=== PATIENT | female | born 1990 | race Caucasian/White ===

== ENCOUNTER 2022-07-27 13:34 | Outpatient (CLI) | payer OTHER, SELFPAY ==
[2022-07-27] VITALS (11 sets, daily range): BP systolic 115–128; BP diastolic 69–78; PULSE 74–88
--- NOTE | 2022-07-27 13:34 | OBADM ---
This patient, Mame Moulton, admitted to the OB room OB Post 117 for observation. Patient/family oriented to hospital policies and general routines including ID bracelet, bed and alarms, visiting hours, pain management, procedures, bathroom and other care routines, personal items, smoking policy, room service/diet, and visiting hours. Patient/Family are encouraged to report perceived risks to care and to ask questions if they do not understand what they are told or what they should do.
[2022-07-27 14:14] LABS: Basophils Percent Auto 0.3 % (0.2-1.2); Eosinophils Percent Auto 0.3 % (0-4.4); Hematocrit 32.6 % (37.0-47.0); Hemoglobin 10.3 g/dL (12.0-15.0); Immature Granulocyte Absolute 0.04 K/mm3 (0.00-0.031); Immature Granulocyte Percent A 0.5 % (0-0.5); Lymphocytes Absolute Auto 1.69 K/mm3 (0.9-3.2); Lymphocytes Percent Auto 21.4 % (18.3-44.2); Mean Corpuscular HGB Conc 31.6 g/dl (32-36); Mean Corpuscular Hemoglobin 27.3 pg (26-34); Mean Corpuscular Volume 86.5 fl (80-100); Mean Platelet Volume 10.4 fl (7.4-10.4); Monocytes Absolute Auto 0.3 K/mm3 (0.1-0.6); Monocytes Percent Auto 4.3 % (2.6-8.5); Neutrophils Absolute Auto 5.8 K/mm3 (1.3-6.7); Neutrophils Percent Auto 73.2 % (45.5-73.1); Platelet Count Result 224 k/mm3 (150-375); Red Blood Count 3.77 M/mm3 (4.2-5.4); Red Cell Distribution Width 14.7 % (11.5-14.5); White Blood Count 7.9 K/mm3 (4.5-10.0)
[2022-07-27 14:19] LABS: Alanine Aminotransferase 19 U/L (6-35); Alkaline Phosphatase 82 U/L (38-126); Anion Gap 8 mmol/L (8-16); Aspartate Amino Transferase 21 U/L (14-36); Bilirubin,Total 0.3 mg/dL (0.2-1.3); Blood Urea Nitrogen 7 mg/dL (7-17); Calcium 9.2 mg/dL (8.4-10.2); Carbon Dioxide 22 mmol/L (22-30); Chloride 103 mmol/L (98-107); Estimated Glomerular Filt Rate > 60; Glucose 110 mg/dL (65-110); Potassium 3.4 mmol/L (3.4-5.0); Sodium 133 mmol/L (137-145); Uric Acid 4.3 mg/dL (2.5-7.5)
[2022-07-27 15:05] LABS: Creatinine Urine 51.3 mg/dL
[2022-07-27 15:06] LABS: Total Protein Urine Random < 5 mg/dL; Ur Ttl Prot Creatinine Ratio < 0.10 mg/mg (0-0.20)
[2022-07-27 15:11] LABS: Appearance Urine Clear (Clear); Bilirubin Urine Negative (Negative); Blood Urine Negative (Negative); Color Urine Yellow (Yellow); Glucose Urine UA Negative (Negative); Ketones Urine Negative (Negative); Leukocyte Esterase Ur Trace LEU/UL (NEGATIVE); Nitrate Urine Negative (Negative); Protein Urine Negative (Negative); Urobilinogen Urine 0.2 mg/dL (<2.0)
[2022-07-27 15:16] LABS: Bacteria Urine Trace /hpf; Mucus Urine Rare /lpf; RBC Urine 0-2 /hpf (0-2); Squamous Epithelial Cell Urine Many /hpf (Few); WBC Urine 0-3 /hpf (0-3)
[2022-07-27 15:17] LABS: Add Urine Microscopic? YES
--- NOTE | 2022-07-27 16:18 | PC.NURSE ---
Lesley updated on the pt vital signs and lab work. Order received to discharge the pt.
== END 2022-07-27 16:22 | disposition home or self-care (01) ==
LOC: ANHOBOP 13:43 → ANHOBPP 13:45
PROVIDERS: Visit Provider Obstetrics & Gynecology
DX: O13.9 Gestational [pregnancy-induced] hypertension without significant proteinuria, unspecified trimester (principal); Z3A.00 Weeks of gestation of pregnancy not specified
CPT/HCPCS: 36415; 59025; 80053; 81001; 82570; 84156; 84550; 85025; 87086; 87088; 99199

== ENCOUNTER 2022-08-26 15:39 | Outpatient (RCR) | payer OTHER, SELFPAY ==
[2022-08-26 16:36] LABS: Basophils Percent Auto 0.2 % (0.2-1.2); Eosinophils Percent Auto 0.2 % (0-4.4); Hematocrit 33.7 % (37.0-47.0); Hemoglobin 10.8 g/dL (12.0-15.0); Immature Granulocyte Absolute 0.03 K/mm3 (0.00-0.031); Immature Granulocyte Percent A 0.5 % (0-0.5); Lymphocytes Absolute Auto 1.16 K/mm3 (0.9-3.2); Lymphocytes Percent Auto 17.9 % (18.3-44.2); Mean Corpuscular Volume 87.3 fl (80-100); Mean Platelet Volume 11.1 fl (7.4-10.4); Monocytes Absolute Auto 0.4 K/mm3 (0.1-0.6); Monocytes Percent Auto 5.7 % (2.6-8.5); Neutrophils Absolute Auto 4.9 K/mm3 (1.3-6.7); Neutrophils Percent Auto 75.5 % (45.5-73.1); Platelet Count Result 211 k/mm3 (150-375); Red Blood Count 3.86 M/mm3 (4.2-5.4); Red Cell Distribution Width 15.9 % (11.5-14.5); White Blood Count 6.5 K/mm3 (4.5-10.0)
[2022-08-26 16:44] LABS: Appearance Urine Cloudy (Clear); Bacteria Urine None Seen /hpf; Bilirubin Urine Negative (Negative); Blood Urine Negative (Negative); Color Urine Yellow (Yellow); Glucose Urine UA Negative (Negative); Ketones Urine Negative (Negative); Leukocyte Esterase Ur Negative LEU/UL (NEGATIVE); Nitrate Urine Negative (Negative); Non Pathogenic Casts 0-2; Protein Urine Negative (Negative); RBC Urine 0-2 /hpf (0-2); Specific Grav Ur 1.015 (1.001-1.035); Squamous Epithelial Cell Urine Many /hpf (Few); Urobilinogen Urine 0.2 mg/dL (<2.0); WBC Urine 0-5 /hpf (0-3)
[2022-08-26 16:49] LABS: Add Urine Microscopic? YES
[2022-08-26 16:55] LABS: Alanine Aminotransferase 19 U/L (6-35); Albumin Level 3.8 g/dL (3.5-5.1); Alkaline Phosphatase 89 U/L (38-126); Anion Gap 7 mmol/L (8-16); Aspartate Amino Transferase 21 U/L (14-36); Bilirubin,Total 0.3 mg/dL (0.2-1.3); Blood Urea Nitrogen 10 mg/dL (7-17); Calcium 8.9 mg/dL (8.4-10.2); Carbon Dioxide 23 mmol/L (22-30); Chloride 104 mmol/L (98-107); Estimated Glomerular Filt Rate > 60; Glucose 90 mg/dL (65-110); Potassium 3.9 mmol/L (3.4-5.0); Sodium 134 mmol/L (137-145); Uric Acid 4.7 mg/dL (2.5-7.5)
[2022-08-26 17:03] LABS: Creatinine Urine 53.5 mg/dL; Total Protein Urine Random 8 mg/dL; Ur Ttl Prot Creatinine Ratio 0.15 mg/mg (0-0.20)
[2022-08-26 17:28] VITALS: BP 143/80; PULSE 77
== END 2022-09-18 15:14 | disposition home or self-care (01) ==
LOC: ANHOBOP 15:39
PROVIDERS: Visit Provider Obstetrics & Gynecology
DX: O26.899 Other specified pregnancy related conditions, unspecified trimester (principal); R03.0 Elevated blood-pressure reading, without diagnosis of hypertension; Z3A.00 Weeks of gestation of pregnancy not specified
CPT/HCPCS: 36415; 59025; 80053; 81001; 82570; 84156; 84550; 85025; 87086

== ENCOUNTER 2022-08-28 12:36 | Observation (INO) | payer OTHER, SELFPAY ==
--- NOTE | 2022-09-07 06:55 | PM.OBTRLD ---
OB - Triage/Final Diagnosis Visit Information Reason for evaluation: threatened labor Comments/Additional reasons for admission: I have assessed the risk for this patient, Mame Moulton, and determined that she would benefit from observation care.
== END 2022-08-28 15:07 | disposition home or self-care (01) ==
PROVIDERS: Admitting Provider Obstetrics & Gynecology; Visit Provider Obstetrics & Gynecology
DX: O47.1 False labor at or after 37 completed weeks of gestation (principal); Z3A.37 37 weeks gestation of pregnancy
CPT/HCPCS: G0378; G0379

== ENCOUNTER 2022-09-01 20:30 | Inpatient (IN) | payer OTHER, SELFPAY ==
[2022-09-01] VITALS (28 sets, daily range): BP systolic 125–207; BP diastolic 81–105; PULSE 59–80; RESP 16; TEMP 36.4; BMI 38.6
--- NOTE | 2022-09-01 19:00 | OBADM ---
This patient, Mame Moulton, admitted to the OB room OB Post 112 for observation. Patient states she has been taking BP at home and they have been elevated. Also states she has had a headache most of the day along with visual disturbances she describes as sparkles . Patient states she had a history of Pre-E with 1st and was delivered early at 37 weeks. Patient/family oriented to hospital policies and general routines including ID bracelet, bed and alarms, visiting hours, pain management, procedures, bathroom and other care routines, personal items, smoking policy, room service/diet, and visiting hours. Patient/Family are encouraged to report perceived risks to care and to ask questions if they do not understand what they are told or what they should do.
[2022-09-01 19:06] LABS: Basophils Percent Auto 0.2 % (0.2-1.2); Eosinophils Percent Auto 0.1 % (0-4.4); Hematocrit 33.5 % (37.0-47.0); Hemoglobin 10.6 g/dL (12.0-15.0); Immature Granulocyte Absolute 0.07 K/mm3 (0.00-0.031); Immature Granulocyte Percent A 0.8 % (0-0.5); Lymphocytes Absolute Auto 2.27 K/mm3 (0.9-3.2); Lymphocytes Percent Auto 26.1 % (18.3-44.2); Mean Corpuscular HGB Conc 31.6 g/dl (32-36); Mean Corpuscular Volume 85.5 fl (80-100); Mean Platelet Volume 11.6 fl (7.4-10.4); Monocytes Absolute Auto 0.4 K/mm3 (0.1-0.6); Monocytes Percent Auto 4.8 % (2.6-8.5); Neutrophils Absolute Auto 5.9 K/mm3 (1.3-6.7); Platelet Count Result 219 k/mm3 (150-375); Red Blood Count 3.92 M/mm3 (4.2-5.4); Red Cell Distribution Width 15.3 % (11.5-14.5); White Blood Count 8.7 K/mm3 (4.5-10.0)
[2022-09-01 19:15] LABS: Alanine Aminotransferase 25 U/L (6-35); Albumin Level 3.9 g/dL (3.5-5.1); Alkaline Phosphatase 113 U/L (38-126); Anion Gap 9 mmol/L (8-16); Aspartate Amino Transferase 31 U/L (14-36); Bilirubin,Total 0.3 mg/dL (0.2-1.3); Blood Urea Nitrogen 14 mg/dL (7-17); Calcium 8.7 mg/dL (8.4-10.2); Carbon Dioxide 20 mmol/L (22-30); Chloride 106 mmol/L (98-107); Estimated Glomerular Filt Rate > 60; Glucose 73 mg/dL (65-110); Potassium 3.2 mmol/L (3.4-5.0); Sodium 135 mmol/L (137-145); Uric Acid 5.7 mg/dL (2.5-7.5)
[2022-09-01 19:25] LABS: Creatinine Urine 34.8 mg/dL; Total Protein Urine Random 76 mg/dL; Ur Ttl Prot Creatinine Ratio 2.18 mg/mg (0-0.20)
[2022-09-01 19:26] LABS: Appearance Urine Clear (Clear); Bacteria Urine None Seen /hpf; Bilirubin Urine Negative (Negative); Blood Urine Negative (Negative); Color Urine Yellow (Yellow); Glucose Urine UA Negative (Negative); Ketones Urine Negative (Negative); Leukocyte Esterase Ur Negative LEU/UL (NEGATIVE); Nitrate Urine Negative (Negative); Non Pathogenic Casts 0-2; Protein Urine 2+ mg/dL (Negative); RBC Urine 0-2 /hpf (0-2); Squamous Epithelial Cell Urine Few /hpf (Few); Urobilinogen Urine 0.2 mg/dL (<2.0); WBC Urine 0-5 /hpf (0-3)
[2022-09-01] MEDS: LABETALOL HCL INJ 100 MG/20 ML VIAL 20 MG IV PUSH (19:30)
[2022-09-01 19:36] LABS: Add Urine Microscopic? YES
[2022-09-01] MEDS: LABETALOL HCL INJ 100 MG/20 ML VIAL 40 MG IV PUSH (19:45)
[2022-09-01] MEDS: LABETALOL HCL INJ 100 MG/20 ML VIAL 80 MG IV PUSH ×2 (20:00→20:22)
[2022-09-01] MEDS: ACETAMINOPHEN 500 MG TABLET 1000 MG PO (20:05)
[2022-09-01] MEDS: LACTATED RINGERS 1,000 ML 75 ML IV CONT (20:50)
[2022-09-01] MEDS: MAGNESIUM SULF 4 GM/WATER100ML 4 GM/100 ML BAG IVPB (20:53)
[2022-09-01] MEDS: ONDANSETRON INJ 4 MG/2 ML VIAL IV PUSH (21:00)
--- NOTE | 2022-09-01 21:02 | WPDANESEPPF ---
Anes - Initial Pre Proc Eval Procedure: Date/Time: 09/01/22 21:02 Surgeon: Karan Sutton MD Pre Op Diagnosis: Pre-Eclampsia Pre Op Diagnosis: PIH Evaluation Patient Data Age: 32 Gender: F Height: Weight: Last Vital Signs Pulse 74 09/01/22 21:00 BP 166/90 H 09/01/22 21:00 Allergies Allergy/AdvReac Type Severity Reaction Status Date / Time azithromycin Allergy Hives Verified 07/27/22 14:09 Home Medications Medication Instructions Recorded Confirmed Type docosahexaenoic acid 200 mg capsule 480 mg PO 08/21/22 History Laboratory Tests 09/01/22 09/01/22 09/01/22 18:54 18:54 18:54 WBC 8.7 K/mm3 K/mm3 (4.5-10.0) RBC 3.92 M/mm3 L M/mm3 (4.2-5.4) Hgb 10.6 g/dL L g/dL (12.0-15.0) Hct 33.5 % L % (37.0-47.0) MCV 85.5 fl fl (80-100) MCH 27.0 pg pg (26-34) MCHC 31.6 g/dl L g/dl (32-36) RDW 15.3 % H % (11.5-14.5) Plt Count 219 k/mm3 k/mm3 (150-375) MPV 11.6 fl H fl (7.4-10.4) Immature Gran % (Auto) 0.8 % H % (0-0.5) Neut % (Auto) 68.0 % % (45.5-73.1) Lymph % (Auto) 26.1 % % (18.3-44.2) [place] % (Auto) 4.8 % % (2.6-8.5) Eos % (Auto) 0.1 % % (0-4.4) Baso % (Auto) 0.2 % % (0.2-1.2) Lymph # (Auto) 2.27 K/mm3 K/mm3 (0.9-3.2) [place] # (Auto) 0.4 K/mm3 K/mm3 (0.1-0.6) Eos # (Auto) 0.0 K/mm3 K/mm3 (0-0.3) Baso # (Auto) 0.0 K/mm3 K/mm3 (0.0-0.1) Abs Immat Gran (auto) 0.07 K/mm3 H K/mm3 (0.00-0.031) Absolute Neuts (auto) 5.9 K/mm3 K/mm3 (1.3-6.7) Absolute Nucleated RBC 0.0 K/mm3 K/mm3 (0.0-0.012) Nucleated RBC % 0.0 % % (0.0-0.2) Sodium Potassium Chloride Carbon Dioxide Anion Gap BUN Creatinine Estim Creat Clear Calc Estimated GFR Glucose Uric Acid Calcium Total Bilirubin AST ALT Alkaline Phosphatase Total Protein Albumin Urine Color Yellow (Yellow) Urine Appearance Clear (Clear) Urine pH 6.0 (5.0-9.0) Ur Specific [place] 1.010 (1.001-1.035) Urine Protein 2+ mg/dL H mg/dL (Negative) Urine Glucose (UA) Negative mg/dL mg/dL (Negative) Urine Ketones Negative mg/dL mg/dL (Negative) Ur Blood (Man) Negative (Negative) Urine Nitrate Negative (Negative) Urine Bilirubin Negative (Negative) Urine Urobilinogen 0.2 mg/dL mg/dL (<2.0) Ur Leukocyte Esterase Negative KAT/UL KAT/UL (NEGATIVE) Urine RBC 0-2 /hpf /hpf (0-2) Urine WBC 0-5 /hpf /hpf (0-3) Ur Squamous Epith Cells Few /hpf /hpf (Few) Urine Bacteria None seen /hpf /hpf Urine Casts 0-2 U Random Total Protein 76 mg/dL mg/dL Urine Creatinine 34.8 mg/dL mg/dL Protein/Creat Ratio 2 2.18 mg/mg H mg/mg (0-0.20) 09/01/22 18:54 WBC RBC Hgb Hct MCV MCH MCHC RDW Plt Count MPV Immature Gran % (Auto) Neut % (Auto) Lymph % (Auto) [place] % (Auto) Eos % (Auto) Baso % (Auto) Lymph # (Auto) [place] # (Auto) Eos # (Auto) Baso # (Auto) Abs Immat Gran (auto) Absolute Neuts (auto) Absolute Nucleated RBC Nucleated RBC % Sodium 135 mmol/L L mmol/L (137-145) Potassium 3.2 mmol/L L mmol/L (3.4-5.0) Chloride 106 mmol/L mmol/L (98-107) Carbon Dioxide 20 mmol/L L mmol/L (22-30) Anion Gap 9 mmol/L mmol/L (8-16) BUN 14 mg/dL mg/dL (7-17) Creatinine
[2022-09-01 21:33] LABS: Basophils Percent Auto 0.2 % (0.2-1.2); Eosinophils Percent Auto 0.1 % (0-4.4); Hematocrit 34.4 % (37.0-47.0); Hemoglobin 11.2 g/dL (12.0-15.0); Immature Granulocyte Absolute 0.04 K/mm3 (0.00-0.031); Immature Granulocyte Percent A 0.5 % (0-0.5); Lymphocytes Percent Auto 24.4 % (18.3-44.2); Mean Corpuscular HGB Conc 32.6 g/dl (32-36); Mean Platelet Volume 12.1 fl (7.4-10.4); Monocytes Absolute Auto 0.4 K/mm3 (0.1-0.6); Monocytes Percent Auto 4.7 % (2.6-8.5); Neutrophils Percent Auto 70.1 % (45.5-73.1); Platelet Count Result 214 k/mm3 (150-375); Red Cell Distribution Width 15.7 % (11.5-14.5); White Blood Count 8.6 K/mm3 (4.5-10.0)
[2022-09-01] MEDS: MAGNESIUM SULF 20GM/WATER500ML 500 ML 50 MG IV CONT (21:35)
--- NOTE | 2022-09-01 22:20 | PM.IMHP ---
H&P: HPI History of Present Illness Date/Time: 09/01/22 22:20 Chief Complaint: High blood pressure Narrative: 32 y/o at 38 1/7 weeks with a history of preeclampsia in her first . She has been on aspirin 81 mg until 34 weeks. She checked her bp at home and found it to be elevated. No headache, no abdominal pain, no visual field changes. Good movement. She has had some contractions. BP here 207/105, has responded to treatment. Prior x 2, desires repeat. I have offered her repeat this evening. 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 Surgical History Surgical History (Updated 09/01/22 @ 22:30 by Karan Sutton MD) History of delivery Family History Family History Father Hypertension Mother Hypertension Social History Social History Substance use: never Spiritual care concerns: No Comments SAB x 4 x 2 Meds Home Medications and Allergies Home Medications Medication Instructions Recorded Confirmed Type docosahexaenoic acid 200 mg capsule 480 mg PO 08/21/22 History Allergies Allergy/AdvReac Type Severity Reaction Status Date / Time azithromycin Allergy Hives Verified 07/27/22 14:09 Vital Signs Vital Signs - 24 hr 09/01/22 18:40 09/01/22 18:46 09/01/22 19:00 Pulse Rate 73 67 71 Blood Pressure 207/105 H 198/98 H 193/104 H 09/01/22 19:15 09/01/22 19:31 09/01/22 19:41 Pulse Rate 70 64 67 Blood Pressure 195/99 H 195/96 H 196/97 H 09/01/22 19:51 09/01/22 19:59 09/01/22 20:00 Pulse Rate 75 66 66 Blood Pressure 192/96 H 181/98 H 189/99 H 09/01/22 20:10 09/01/22 20:20 04/04/23 20:30 Pulse Rate 78 70 72 Blood Pressure 187/96 H 187/92 H 183/99 H 09/01/22 20:46 09/01/22 20:50 09/01/22 21:00 Pulse Rate 72 69 74 Blood Pressure 162/87 H 172/92 H 166/90 H 09/01/22 21:10 09/01/22 21:20 09/01/22 21:30 Pulse Rate 75 79 80 Blood Pressure 167/87 H 161/89 H 155/84 H 09/01/22 21:40 09/01/22 21:50 09/01/22 19:30 Pulse Rate 75 79 62 Blood Pressure 149/85 H 157/89 H 09/01/22 19:45 09/01/22 20:00 09/01/22 20:22 Pulse Rate 67 65 74 Blood Pressure Exam Const: Orientation/consciousness: patient oriented x3 Other: Well-developed, well-nourished female in no acute distress. Neck: Thyroid: thyroid normal Lymphatic: no lymphadenopathy noted (in neck, axilla or inguinal nodes) Resp: Effort & Inspection: normal respiratory effort Auscultation: clear to auscultation bilaterally Cardio: Rate: regular rate Rhythm: regular rhythm Heart sounds: S1 normal heart sound present and S2 normal heart sound present GI: Other: ABD: Soft, nontender, nondistended, gravid. No guarding or rebound tenderness. No hepatosplenomegaly. NST reactive. TOCO: irregular contractions. : General: Yes no CVA tenderness Other: RomPlus negative. Back/Spine/Pelvis: Back: no CVA tenderness Skin: General skin exam: normal color and no rashes or lesions noted Neuro: General: patient oriented x3 Extrem: Other: Extremities: nontender with no edema Psych: Mental Status: mental status grossly normal Affect: normal affect H&P: Results Labs Labs: Short CBC 09/01/22 09/01/22 Range/Units 18:54 21:27 WBC 8.7 8.6 (4.5-10.0) K/mm3 Hgb 10.6 L 11.2 L (12.0-15.0) g/dL Hct 33.5 L 34.4 L (37.0-47.0) % Plt Count 219 214 (150-375) k/mm3 BMP 09/01/22 18:54 Sodium 135 L Potassium 3.2 L Chloride 106 Carbon Dioxide 20 L BUN 14 Creatinine 0.60 L Glucose 73 Calcium 8.7 Liver Function 09/01/22 Range/Units 18:54 Total Bilirubin 0.3 (0.2-1
[2022-09-01] MEDS: ceFAZolin 2 GM/D5W 50 ML 2 GM/50 ML BAG IVPB (22:26)
--- NOTE | 2022-09-01 22:30 | WPDHPUPDATE1 ---
History and Physical Update Update Date/Time: 09/01/22 22:30 History and Physical has been reviewed, including an updated exam of the patient. There are NO changes in the patient's condition. Risks, benefits, and alternatives have been discussed and questions answered. Patient agrees to proceed with procedure.
[2022-09-01] MEDS: OXYTOCIN 30 UNITS/NS 500 ML 30 UNITS/500 ML BAG 125 UNITS IV CONT (23:30)
[2022-09-01] MEDS: KETOROLAC 30 MG/ML VIAL (*BKC) IV PUSH (23:48)
--- NOTE | 2022-09-01 23:51 | P.PCNOB_ITS ---
OB - Delivery Note Procedure Delivery date: 09/01/22 Procedure: Procedures Operation Date: 09/01/22 22:00 <No data on this case meets the specified criteria> Repeat low transverse delivery Events: Preeclampsia w/o severe features and Previous Delivery Delivery monitor: External FHT and External Uterine Route of delivery: Specimen: Yes (cord blood, placenta) Quantitative Blood Loss (ml): 880 Anesthesia type: Spinal Disposition: PACU Complications: None Narrative: Findings: Two vessel umbilical cord noted. Dense adhesions between the anterior uterus and the abdominal wall. Otherwise, unremarkable uterus, tubes and ovaries. The patient was taken to the operating room where she was prepared and draped in the usual sterile fashion in dorsal supine position with a leftward tilt. She received cefazolin preoperatively. Spinal anesthesia was found to be adequate. A Pfannenstiel skin incision was made along the previous scar line and was carried through to the underlying layer of the fascia. The fascia was incised in the midline and the incision was extended laterally. The fascia was dissected free of the underlying rectus muscles. The rectus muscles were in the midline. The peritoneum was identified, tented up and entered sharply. The peritoneal incision was extended superiorly and inferiorly with good visualization of the bladder. The bladder blade was placed. Dense adhesions were carefully dissected. The vesicouterine peritoneum was identified, tented up and entered sharply. The incision was extended laterally and the bladder flap was developed. The bladder blade was replaced. The uterus was then incised sharply in a transverse fashion along the lower uterine segment. The incision was extended laterally. The 's head was delivered atraumatically to the sterile field, followed by the body. The nose and mouth were bulb suctioned. After a delay, the cord was clamped and cut. The infant was handed off the field. Cord blood was collected. The placenta was removed manually and was passed off the field. The uterus was exteriorized and cleared of all clots and debris. The uterine incision was reapproximated using 0 Monocryl in a running, locked fashion. A second, imbricating layer of the same suture was run. Excellent hemostasis resulted as did excellent reapproximation of the normal anatomy. The uterus was returned the abdomen. The pelvis was irrigated copiously with warmed normal saline. The bladder flap was treated with Hemaderm. Rigorous hemostasis was assured. The fascial layer was reapproximated using 0 Vicryl in a running fashion. The skin was closed with a running, subcuticular stitch of 4 0 Vicryl. Dermaflex was applied externally. Sponge, lap, needle and instrument counts were correct. The patient was taken to the recovery room in stable condition. The went to the nursery in stable condition. I was present and scrubbed the entire procedure. [place] Baby Date of : 09/01/22 Time of : 22:55 Weeks of gestation at delivery: 38 gender: Female Weight (pounds): 6 Weight (ounces): 3 presentation: vertex Placenta delivery description: Manual Removal and Normal Configuration Cord Vessel Description: 3 Vessels and Delayed Cord Clamping score one minute: 8 score five minutes: 8
--- NOTE | 2022-09-01 23:58 | PM.OBDSVD ---
DS: Admitting Diagnosis Discharge Date 09/04/22 Admitting Diagnosis IUP at 38 1/7 weeks Severe preeclampsia Prior DS: Discharge Diagnosis Discharge Diagnosis (1) delivery delivered: Code(s): O82 - Encounter for delivery without indication Status: Acute (2) Preeclampsia: Code(s): O14.90 - Unspecified pre-eclampsia, unspecified trimester Status: Acute OB - DS: Summary OB Procedures : NST and PIH Mgmt OB Procedures Intrapartum: OB Procedures: : None Peripartum Data Procedures: Procedures Operation Date: 09/01/22 22:00 <No data on this case meets the specified criteria> Time Spent with Patient Time attestation: Total time spent providing and/or coordinating discharge services: DS: Data Data Completed and Pending Labs on day of discharge: Labs from last 24 hours 09/01/22 09/01/22 09/01/22 21:27 21:27 21:27 WBC 8.6 RBC 4.00 L Hgb 11.2 L Hct 34.4 L MCV 86.0 MCH 28.0 MCHC 32.6 RDW 15.7 H Plt Count 214 MPV 12.1 H Immature Gran % (Auto) 0.5 Neut % (Auto) 70.1 Lymph % (Auto) 24.4 [place] % (Auto) 4.7 Eos % (Auto) 0.1 Baso % (Auto) 0.2 Lymph # (Auto) 2.10 [place] # (Auto) 0.4 Eos # (Auto) 0.0 Baso # (Auto) 0.0 Abs Immat Gran (auto) 0.04 H Absolute Neuts (auto) 6.0 Absolute Nucleated RBC 0.0 Nucleated RBC % 0.0 Sodium Potassium Chloride Carbon Dioxide Anion Gap BUN Creatinine Estim Creat Clear Calc Estimated GFR Glucose Uric Acid Calcium Total Bilirubin AST ALT Alkaline Phosphatase Total Protein Albumin Urine Color Urine Appearance Urine pH Ur Specific [place] Urine Protein Urine Glucose (UA) Urine Ketones Ur Blood (Man) Urine Nitrate Urine Bilirubin Urine Urobilinogen Ur Leukocyte Esterase Urine RBC Urine WBC Ur Squamous Epith Cells Urine Bacteria Urine Casts U Random Total Protein Urine Creatinine Protein/Creat Ratio 2 RPR Pending Blood Type A Positive Antibody Screen Negative 09/01/22 09/01/22 09/01/22 18:54 18:54 18:54 WBC 8.7 RBC 3.92 L Hgb 10.6 L Hct 33.5 L MCV 85.5 MCH 27.0 MCHC 31.6 L RDW 15.3 H Plt Count 219 MPV 11.6 H Immature Gran % (Auto) 0.8 H Neut % (Auto) 68.0 Lymph % (Auto) 26.1 [place] % (Auto) 4.8 Eos % (Auto) 0.1 Baso % (Auto) 0.2 Lymph # (Auto) 2.27 [place] # (Auto) 0.4 Eos # (Auto) 0.0 Baso # (Auto) 0.0 Abs Immat Gran (auto) 0.07 H Absolute Neuts (auto) 5.9 Absolute Nucleated RBC 0.0 Nucleated RBC % 0.0 Sodium 135 L Potassium 3.2 L Chloride 106 Carbon Dioxide 20 L Anion Gap 9 BUN 14 Creatinine 0.60 L Estim Creat Clear Calc Not Reportable Estimated GFR > 60 Glucose 73 Uric Acid 5.7 Calcium 8.7 Total Bilirubin 0.3 AST 31 ALT 25 Alkaline Phosphatase 113 Total Protein 7.0 Albumin 3.9 Urine Color Urine Appearance Urine pH Ur Specific [place] Urine Protein Urine Glucose (UA) Urine Ketones Ur Blood (Man) Urine Nitrate Urine Bilirubin Urine Urobilinogen Ur Leukocyte Esterase Urine RBC Urine WBC Ur Squamous Epith Cells Urine Bacteria Urine Casts U Random Total Protein 76 Urine Creatinine 34.8 Protein/Creat Ratio 2 2.18 H RPR Blood Type Antibody Screen 09/01/22 18:54 WBC RBC Hgb Hct MCV MCH MCHC RDW Plt Count MPV Immature Gran % (Auto) Neut % (Auto) Lymph % (Auto) [place] % (Auto) Eos % (Auto) Baso % (Auto) Lymph # (Auto) [place] # (Auto) Eos # (Auto) Baso # (Auto) Abs Immat Gran (auto) Absolute Neuts (auto) Absolute Nucleated RBC Nucleated RBC % Sodium Potassium Chloride Carbon Dioxide Anion Gap BUN Creatinine Estim Creat Cl
[2022-09-02] VITALS (22 sets, daily range): BP systolic 123–157; BP diastolic 47–88; PULSE 58–90; RESP 16–18; TEMP 36.1–37.2; O2SAT 95–100
[2022-09-02] MEDS: MORPHINE SULFATE INJ (*CRX) 10 MG/ML AMP IV PUSH ×3 (00:02→01:00)
--- NOTE | 2022-09-02 02:07 | OBPPTRN ---
Patient transferred to post room #287 via stretcher. Support person present. Oriented to unit, room, information board, rooming in, admission packet and security measures. Patient verbalizes understanding.
[2022-09-02] MEDS: ONDANSETRON INJ 4 MG/2 ML VIAL IV PUSH ×2 (02:58→12:37)
[2022-09-02 05:05] LABS: Basophils Percent Auto 0.2 % (0.2-1.2); Hematocrit 28.7 % (37.0-47.0); Hemoglobin 9.3 g/dL (12.0-15.0); Immature Granulocyte Absolute 0.07 K/mm3 (0.00-0.031); Immature Granulocyte Percent A 0.5 % (0-0.5); Lymphocytes Absolute Auto 0.83 K/mm3 (0.9-3.2); Lymphocytes Percent Auto 6.3 % (18.3-44.2); Mean Corpuscular HGB Conc 32.4 g/dl (32-36); Mean Corpuscular Hemoglobin 28.3 pg (26-34); Mean Corpuscular Volume 87.2 fl (80-100); Mean Platelet Volume 11.4 fl (7.4-10.4); Monocytes Absolute Auto 0.3 K/mm3 (0.1-0.6); Monocytes Percent Auto 2.6 % (2.6-8.5); Neutrophils Absolute Auto 11.9 K/mm3 (1.3-6.7); Neutrophils Percent Auto 90.4 % (45.5-73.1); Platelet Count Result 205 k/mm3 (150-375); Red Blood Count 3.29 M/mm3 (4.2-5.4); Red Cell Distribution Width 15.5 % (11.5-14.5); White Blood Count 13.2 K/mm3 (4.5-10.0)
[2022-09-02] MEDS: MAGNESIUM SULF 20GM/WATER500ML 500 ML 50 MG IV CONT (07:35)
--- NOTE | 2022-09-02 08:00 | PC.NURSE ---
PT introductions made and plan of care discussed per post op c section, pain management, breast feeding, daily care activities and PIH magnesium, PT c/o vertigo and nausea. Cannot open her eyes. lights off, cold compress applied. PT and spouse both recipients of instructions.PT received instructions per one to one discussion, mom baby care guide and demonstrations this shift. No barriers to learning identified at this time and pt verbalized understanding .
--- NOTE | 2022-09-02 08:03 | WPDANLDPN2 ---
Anes-Prog Note L&D Date/Time: 09/02/22 08:03 Comfortable throughout: section Neuraxial method: spinal Epidural/Spinal procedure site: clean & non-tender Neuro status: Neuro function grossly intact. Cardiovascular status: normal Respiratory status: normal Airway patency: baseline Mental status: baseline Post-Op hydration status: normal (catheter still in place) Vital Signs: Last Vital Signs Temp 36.2 C L 09/02/22 04:47 Pulse 80 09/02/22 04:47 Resp 16 09/02/22 04:47 BP 157/85 H 09/02/22 04:47 Pulse Ox 98 09/02/22 04:47 O2 Del Method Room Air 09/02/22 04:47 Pain score (VAS): 2 I/O: Intake & Output 09/01/22 09/02/22 09/02/22 23:59 07:59 15:59 Intake Total 100 500 Output Total 100 Balance 100 400 Post-procedural complaints: nausea Patient feedback: Patient satisfied with anesthetic care.
--- NOTE | 2022-09-02 08:04 | WPDANLDNPN2 ---
Anes-Prog Note L&D-Neuraxial Date/Time: 09/02/22 08:04 Neuraxial medications: intrathecal PF morphine Opiod-related complaints: nausea Patient feedback: Patient satisfied with post-operative pain management.
[2022-09-02 08:14] LABS: Rapid Plasma Reagin Non-Reactive (NonReactive)
--- NOTE | 2022-09-02 08:52 | PM.OBPNVD ---
OB - PN: Subj Subjective Date/time seen: 09/02/22 08:52 Narrative: Pain OK. Nauseated, with some vertigo symptoms. OB - PN: Obj Data Labs 09/02/22 04:33 09/01/22 18:54 Labs: Laboratory Results - last 24 hr 09/01/22 09/01/22 09/01/22 18:54 18:54 18:54 WBC 8.7 RBC 3.92 L Hgb 10.6 L Hct 33.5 L MCV 85.5 MCH 27.0 MCHC 31.6 L RDW 15.3 H Plt Count 219 MPV 11.6 H Immature Gran % (Auto) 0.8 H Neut % (Auto) 68.0 Lymph % (Auto) 26.1 [place] % (Auto) 4.8 Eos % (Auto) 0.1 Baso % (Auto) 0.2 Lymph # (Auto) 2.27 [place] # (Auto) 0.4 Eos # (Auto) 0.0 Baso # (Auto) 0.0 Abs Immat Gran (auto) 0.07 H Absolute Neuts (auto) 5.9 Absolute Nucleated RBC 0.0 Nucleated RBC % 0.0 Sodium Potassium Chloride Carbon Dioxide Anion Gap BUN Creatinine Estim Creat Clear Calc Estimated GFR Glucose Uric Acid Calcium Total Bilirubin AST ALT Alkaline Phosphatase Total Protein Albumin Urine Color Yellow Urine Appearance Clear Urine pH 6.0 Ur Specific [place] 1.010 Urine Protein 2+ H Urine Glucose (UA) Negative Urine Ketones Negative Ur Blood (Man) Negative Urine Nitrate Negative Urine Bilirubin Negative Urine Urobilinogen 0.2 Ur Leukocyte Esterase Negative Urine RBC 0-2 Urine WBC 0-5 Ur Squamous Epith Cells Few Urine Bacteria None seen Urine Casts 0-2 U Random Total Protein 76 Urine Creatinine 34.8 Protein/Creat Ratio 2 2.18 H RPR Blood Type Antibody Screen 09/01/22 09/01/22 09/01/22 18:54 21:27 21:27 WBC 8.6 RBC 4.00 L Hgb 11.2 L Hct 34.4 L MCV 86.0 MCH 28.0 MCHC 32.6 RDW 15.7 H Plt Count 214 MPV 12.1 H Immature Gran % (Auto) 0.5 Neut % (Auto) 70.1 Lymph % (Auto) 24.4 [place] % (Auto) 4.7 Eos % (Auto) 0.1 Baso % (Auto) 0.2 Lymph # (Auto) 2.10 [place] # (Auto) 0.4 Eos # (Auto) 0.0 Baso # (Auto) 0.0 Abs Immat Gran (auto) 0.04 H Absolute Neuts (auto) 6.0 Absolute Nucleated RBC 0.0 Nucleated RBC % 0.0 Sodium 135 L Potassium 3.2 L Chloride 106 Carbon Dioxide 20 L Anion Gap 9 BUN 14 Creatinine 0.60 L Estim Creat Clear Calc Not Reportable Estimated GFR > 60 Glucose 73 Uric Acid 5.7 Calcium 8.7 Total Bilirubin 0.3 AST 31 ALT 25 Alkaline Phosphatase 113 Total Protein 7.0 Albumin 3.9 Urine Color Urine Appearance Urine pH Ur Specific [place] Urine Protein Urine Glucose (UA) Urine Ketones Ur Blood (Man) Urine Nitrate Urine Bilirubin Urine Urobilinogen Ur Leukocyte Esterase Urine RBC Urine WBC Ur Squamous Epith Cells Urine Bacteria Urine Casts U Random Total Protein Urine Creatinine Protein/Creat Ratio 2 RPR Non-reactive Blood Type Antibody Screen 09/01/22 09/02/22 21:27 04:33 WBC 13.2 H RBC 3.29 L Hgb 9.3 L Hct 28.7 L MCV 87.2 MCH 28.3 MCHC 32.4 RDW 15.5 H Plt Count 205 MPV 11.4 H Immature Gran % (Auto) 0.5 Neut % (Auto) 90.4 H Lymph % (Auto) 6.3 L [place] % (Auto) 2.6 Eos % (Auto) 0.0 Baso % (Auto) 0.2 Lymph # (Auto) 0.83 L [place] # (Auto) 0.3 Eos # (Auto) 0.0 Baso # (Auto) 0.0 Abs Immat Gran (auto) 0.07 H Absolute Neuts (auto) 11.9 H Absolute Nucleated RBC 0.0 Nucleated RBC % 0.0 Sodium Potassium Chloride Carbon Dioxide Anion Gap BUN Creatinine Estim Creat Clear Calc Estimated GFR Glucose Uric Acid Calcium Total Bilirubin AST ALT Alkaline Phosphatase Total Protein Albumin Urine Color Urine Appearance Urine pH Ur Specific [place] Urine Protein Urine Glucose (UA) Urine Ketones Ur Blood (Man) Urine Nitrate Urine Bilirubin Urine Urobilinogen Ur Leukocyte [place]
[2022-09-02] MEDS: KETOROLAC 30 MG/ML VIAL (*BKC) IV PUSH ×3 (09:15→22:25)
[2022-09-02] MEDS: PROMETHAZINE HCL 25 MG/ML AMPUL 12.5 MG IV PUSH ×2 (09:17→15:57)
[2022-09-02] MEDS: DEXTROSE 5%/0.45% SOD CHL 1,000 ML 75 ML IV CONT (12:00)
[2022-09-02] MEDS: SIMETHICONE 80 MG TAB.CHEW PO (15:54)
[2022-09-02] MEDS: HYDROcodone/acetaminophen (*CRX) 5-325 MG TABLET 1 TAB PO (20:10)
[2022-09-02] MEDS: POLYSACCHARIDE IRON COMPLEX 150 MG CAPSULE PO (20:10)
[2022-09-02] MEDS: DOCUSATE SODIUM 100 MG CAPSULE PO (20:10)
[2022-09-02] MEDS: HYDROcodone/acetaminophen (*CRX) 10-325 MG TABLET 1 TAB PO (23:15)
[2022-09-03] VITALS (7 sets, daily range): BP systolic 130–164; BP diastolic 70–87; PULSE 81–93; RESP 14–18; TEMP 36.6–37.6; O2SAT 95–100
[2022-09-03] MEDS: IBUPROFEN 600 MG TABLET PO ×3 (04:28→18:06)
[2022-09-03] MEDS: HYDROcodone/acetaminophen (*CRX) 10-325 MG TABLET 1 TAB PO ×5 (04:29→20:58)
--- NOTE | 2022-09-03 08:00 | PC.NURSE ---
PT introductions made and plan of care discussed per post op c section, pain management, breast feeding, daily care activities and PIH. PT and spouse both recipients of instructions.PT received instructions per one to one discussion, mom baby care guide and demonstrations this shift. No barriers to learning identified at this time and pt verbalized understanding .
[2022-09-03] MEDS: SIMETHICONE 80 MG TAB.CHEW PO ×3 (08:24→18:05)
[2022-09-03] MEDS: DOCUSATE SODIUM 100 MG CAPSULE PO ×2 (08:24→18:06)
[2022-09-03] MEDS: POLYSACCHARIDE IRON COMPLEX 150 MG CAPSULE PO ×2 (08:25→18:08)
[2022-09-03] MEDS: MULTIVIT/MIN/PREN/FOL AC/IRON TABLET 1 TAB PO (08:25)
--- NOTE | 2022-09-03 08:49 | PM.OBPNVD ---
OB - PN: Subj Subjective Date/time seen: 09/03/22 08:49 Narrative: Pain OK. Nausea resolved. Tolerating diet. OB - PN: Obj Data Labs 09/02/22 04:33 09/01/22 18:54 OB - PN A/P Plan Comments: A: POD#2, doing well. Preeclampsia resolving. P: Continue to hold antihypertensives. Routine care. Exam Narrative: AVSS I/O: good urine output ABD soft, nontender, fundus firm. Incision c/d/i. EXT nontender
--- NOTE | 2022-09-03 16:51 | PC.NURSE ---
[id number] Breast pump provided this morning by Primary RN related to no through the night with only bottle feeding. Mother was encouraged to record pumping schedule on the feeding sheet and states she hasn't been diligent about filling out the sheet as nothing is written down since 1999 last night. Patient was assessed for correct placement, flange size (28mm), to pump for comfort and nipple stretching/stimulation for adequate milk production every 3 hours (8 times in 24 hours) 1-2 times at night. Mother voiced understanding of the education shared along with mom and baby guide for additional resource information. Reported to the primary RN. [phone] Consulted with mother after a request. Mother states she has had a lot of skin to skin time with her infant through the night. Infant was placed skin to skin on mother and crawled to the breast. will latch optimally, suck, then stop and cry. Unable to hand express more than a few drops of colostrum from mothers breast. We assisted to both breast after used her instincts to move to the breast. There was an offer of starting up an SNS for to go to the breast with supplementation and mother chose to continue to attempt to the breast and supplement. RN encouraged more consistency with pumping to protect the milk supply. Mother voiced understanding of skin to skin, stimulating with massage touch, responsive feedings, hand expressed colostrum, talking to to encourage if it has been 2 -2.5 hours since the start of the last , to call if infant does not latch, pumping consistently, using paced bottle feeding, or if there is discomfort with . Resources provided for inpatient/outpatient with the feeding sheet and the mom/baby guide. Parents voiced understanding of information, demonstrated learning and will call if there is a request for assistance. Reported to the primary RN.
[2022-09-03] MEDS: HYDROcodone/acetaminophen (*CRX) 5-325 MG TABLET 1 TAB PO (18:07)
[2022-09-04] MEDS: HYDROcodone/acetaminophen (*CRX) 10-325 MG TABLET 1 TAB PO ×4 (00:08→11:44)
[2022-09-04] MEDS: IBUPROFEN 600 MG TABLET PO ×2 (00:08→07:18)
[2022-09-04 00:12] VITALS: BP 140/91
[2022-09-04 04:49] VITALS: BP 168/102
[2022-09-04 05:10] VITALS: BP 165/104
[2022-09-04 05:32] VITALS: PULSE 85
[2022-09-04] MEDS: LABETALOL HCL 100 MG TABLET PO (05:32)
[2022-09-04] MEDS: POLYSACCHARIDE IRON COMPLEX 150 MG CAPSULE PO (07:18)
[2022-09-04] MEDS: MULTIVIT/MIN/PREN/FOL AC/IRON TABLET 1 TAB PO (07:18)
[2022-09-04] MEDS: DOCUSATE SODIUM 100 MG CAPSULE PO (07:18)
[2022-09-04 08:35] VITALS: BP 127/72; PULSE 92; RESP 16; TEMP 36.5; O2SAT 94
--- NOTE | 2022-09-04 11:50 | PC.NURSE ---
Mother led the conversation with her experience and plan to feed her so far and her ability to continue with the plan of attempting to pump/supplement to feed infant. Mother states that she worked with the nurse yesterday & that she had assessed her pumping also. Mother states that she does not want to put to breast today. She expressed that she needed a mental break. Reminded parents to use good handwashing technique to prevent infection. Mother is feeding appropriately for growth of and understands stimulating infant to eat if needed. has had appropriate feedings in the last 24 hours meets the outcomes for weight, output and jaundice at this time. Mother states she is confident to continue pumping/supplementing her at home, when to call for assistance and denies any additional assistance or education at this time. Reinforced understanding of milk production, transition of milk, signs of adequate intake, transition of stool, prevention/relief of engorgement, the different methods of stimulating to breastfeed/bottlefeed Q 2-3 hours after the start of the last feeding, community resources, and when to call a provider using the resource of the mom and baby guide/[facility] website. Mother voiced understanding of the education shared. Reported to the primary RN.
--- NOTE | 2022-09-04 12:00 | PM.OBPNVD ---
OB - PN: Subj Subjective Date/time seen: 09/04/22 12:00 Narrative: Pain OK. Tolerating diet. Would like to go home. OB - PN: Obj Data Labs 09/02/22 04:33 09/01/22 18:54 OB - PN A/P Plan Comments: A: POD#3, doing well. P: Home to f/u 4 weeks. Exam Narrative: AVSS ABD soft, nontender, fundus firm. Incision c/d/i. EXT nontender
[2022-09-07 09:36] VITALS: BP 166/100; PULSE 82; RESP 20; TEMP 37.1; O2SAT 97
== END 2022-09-04 14:15 | disposition home or self-care (01) | DRG 788 ==
LOC: ANHOBOP 21:25 → ANHOBPP 21:25 → ANHOB2 09-02 02:15
PROVIDERS: Admitting Provider Obstetrics & Gynecology; Visit Provider Obstetrics & Gynecology
PROC: 10D00Z1 Extraction of Products of Conception, Low, Open Approach (ICD-10-PCS; CPT 59514; principal; 2022-09-01 22:00)
DX: O14.04 Mild to moderate pre-eclampsia, complicating childbirth (principal); Z37.0 Single live birth; Z3A.38 38 weeks gestation of pregnancy; O34.211 Maternal care for low transverse scar from previous cesarean delivery; N73.6 Female pelvic peritoneal adhesions (postinfective)
CPT/HCPCS: 36415; 80053; 81001; 82570; 84156; 84550; 85025; 86592; 86850; 86900; 86901; 87086; 88307; A9270; J0690; J1885; J2270; J2274; J2405; J2550; J2590; J3475; J7120

== ENCOUNTER 2022-09-09 12:58 | Observation (INO) | payer OTHER, SELFPAY ==
[2022-09-09] VITALS (121 sets, daily range): BP systolic 126–179; BP diastolic 68–96; PULSE 7–103; RESP 16–18; TEMP 36.6–37.1; O2SAT 81–100; BMI 33.6
--- NOTE | 2022-09-09 11:45 | PC.NURSE ---
Pt is nursing infant. Instructed to call when she is done.
--- NOTE | 2022-09-09 12:08 | PC.NURSE ---
Pt has finished and in bed now.
[2022-09-09 12:25] LABS: Basophils Percent Auto 0.5 % (0.2-1.2); Eosinophils Absolute Auto 0.1 K/mm3 (0-0.3); Eosinophils Percent Auto 0.8 % (0-4.4); Hemoglobin 8.9 g/dL (12.0-15.0); Immature Granulocyte Absolute 0.09 K/mm3 (0.00-0.031); Immature Granulocyte Percent A 1.5 % (0-0.5); Lymphocytes Absolute Auto 1.57 K/mm3 (0.9-3.2); Lymphocytes Percent Auto 25.9 % (18.3-44.2); Mean Corpuscular HGB Conc 30.7 g/dl (32-36); Mean Corpuscular Hemoglobin 27.2 pg (26-34); Mean Corpuscular Volume 88.7 fl (80-100); Mean Platelet Volume 9.6 fl (7.4-10.4); Monocytes Absolute Auto 0.3 K/mm3 (0.1-0.6); Monocytes Percent Auto 4.4 % (2.6-8.5); Neutrophils Absolute Auto 4.1 K/mm3 (1.3-6.7); Neutrophils Percent Auto 66.9 % (45.5-73.1); Nucleated Red Blood Cells Perc 0.3 % (0.0-0.2); Platelet Count Result 292 k/mm3 (150-375); Red Blood Count 3.27 M/mm3 (4.2-5.4); White Blood Count 6.1 K/mm3 (4.5-10.0)
--- NOTE | 2022-09-09 12:33 | PC.NURSE ---
Dr. Sutton informed of pt's severe BP's and headache. Labs not back yet. Orders received.
[2022-09-09 12:37] LABS: Alanine Aminotransferase 56 U/L (6-35); Albumin Level 3.8 g/dL (3.5-5.1); Alkaline Phosphatase 157 U/L (38-126); Anion Gap 8 mmol/L (8-16); Aspartate Amino Transferase 57 U/L (14-36); Bilirubin,Total 0.6 mg/dL (0.2-1.3); Blood Urea Nitrogen 12 mg/dL (7-17); Calcium 8.7 mg/dL (8.4-10.2); Carbon Dioxide 24 mmol/L (22-30); Chloride 106 mmol/L (98-107); Estimated Glomerular Filt Rate > 60; Glucose 84 mg/dL (65-110); Potassium 4.6 mmol/L (3.4-5.0); Sodium 138 mmol/L (137-145)
[2022-09-09] MEDS: NIFEdipine 10 MG CAPSULE PO (12:53)
--- NOTE | 2022-09-09 12:54 | PC.NURSE ---
Dr. Sutton returned page and informed of lab results including elevated liver enzymes. Informed the Procardia was just given. Order received for Magnesium sulfate and to repeat labs in am.
[2022-09-09] MEDS: ACETAMINOPHEN 500 MG TABLET 1000 MG PO (13:00)
[2022-09-09] MEDS: LACTATED RINGERS 1,000 ML 75 ML IV CONT (13:30)
[2022-09-09] MEDS: MAGNESIUM SULF 4 GM/WATER100ML 4 GM/100 ML BAG IVPB (13:30)
[2022-09-09] MEDS: MAGNESIUM SULF 20GM/WATER500ML 500 ML 50 MG IV CONT (14:00)
[2022-09-09] MEDS: LABETALOL HCL 100 MG TABLET 200 MG PO (21:15)
[2022-09-10] VITALS (14 sets, daily range): BP systolic 132–150; BP diastolic 76–90; PULSE 75–90; RESP 14–18; TEMP 36.2–36.7; O2SAT 94–99
[2022-09-10] MEDS: MAGNESIUM SULF 20GM/WATER500ML 500 ML 50 MG IV CONT ×2 (00:07→10:22)
[2022-09-10] MEDS: LACTATED RINGERS 1,000 ML 75 ML IV CONT (03:00)
[2022-09-10] MEDS: IBUPROFEN 600 MG TABLET PO ×2 (05:26→12:06)
[2022-09-10 05:46] LABS: Hematocrit 31.1 % (37.0-47.0); Hemoglobin 9.5 g/dL (12.0-15.0); Mean Corpuscular HGB Conc 30.5 g/dl (32-36); Mean Corpuscular Hemoglobin 27.2 pg (26-34); Mean Corpuscular Volume 89.1 fl (80-100); Mean Platelet Volume 9.4 fl (7.4-10.4); Platelet Count Result 301 k/mm3 (150-375); Red Blood Count 3.49 M/mm3 (4.2-5.4); Red Cell Distribution Width 16.2 % (11.5-14.5); White Blood Count 5.1 K/mm3 (4.5-10.0)
[2022-09-10 05:57] LABS: Alanine Aminotransferase 57 U/L (6-35); Albumin Level 3.7 g/dL (3.5-5.1); Alkaline Phosphatase 165 U/L (38-126); Anion Gap 6 mmol/L (8-16); Aspartate Amino Transferase 61 U/L (14-36); Bilirubin,Total 0.5 mg/dL (0.2-1.3); Blood Urea Nitrogen 11 mg/dL (7-17); Calcium 6.4 mg/dL (8.4-10.2); Carbon Dioxide 26 mmol/L (22-30); Chloride 102 mmol/L (98-107); Estimated CRCL calculation 117 ml/min; Estimated Glomerular Filt Rate > 60; Glucose 94 mg/dL (65-110); Potassium 4.1 mmol/L (3.4-5.0); Sodium 134 mmol/L (137-145); Uric Acid 5.2 mg/dL (2.5-7.5)
--- NOTE | 2022-09-10 08:45 | PC.NURSE ---
Dr. Sutton at the bedside assessing pt. Lab results and vital signs reviewed by provider. MD order Procardia 30 XL once and discontinue labetalol.
--- NOTE | 2022-09-10 08:54 | PM.IMHP ---
H&P: HPI History of Present Illness Date/Time: 09/10/22 08:54 Chief Complaint: High bp and headache Narrative: 32 y/o POD#9 after repeat for elevated BP at 38 weeks. Baby doing well. She had a headache, bp in 170/100 range in office, asked to come to L&D. Transaminases found to be mildly elevated. Headache improved with some tylenol. Began magnesium sulfate IV for seizure prophylaxis in the setting of preeclampsia. 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 Surgical History Surgical History History of delivery Family History Family History Father Hypertension Mother Hypertension Social History Social History Smoking status: Never smoker Substance use: never Spiritual care concerns: No Meds Home Medications and Allergies Home Medications Medication Instructions Recorded Confirmed Type docosahexaenoic acid 200 mg capsule 480 mg PO DAILY 08/21/22 09/09/22 History ferrous sulfate 325 mg (65 mg 325 mg PO DAILY #30 tabs 09/03/22 09/09/22 Rx iron) tablet hydrocodone 5 mg-acetaminophen 325 1 - 2 tablet PO Q6H PRN pain #30 09/03/22 09/09/22 Rx mg tablet tabs ibuprofen 600 mg tablet 600 mg PO Q6H PRN cramps #30 tabs 09/03/22 09/09/22 Rx labetalol 100 mg tablet 200 mg PO Q12H 09/09/22 09/09/22 History Allergies Allergy/AdvReac Type Severity Reaction Status Date / Time azithromycin Allergy Hives Verified 07/27/22 14:09 Vital Signs Vital Signs - 24 hr 09/09/22 12:13 09/09/22 12:31 09/09/22 12:46 Temperature Pulse Rate 73 72 71 Respiratory Rate Blood Pressure 178/96 H 164/92 H 163/92 H Blood Pressure [Left Arm] Pulse Oximetry Oxygen Delivery 09/09/22 12:53 09/09/22 13:01 09/09/22 13:04 Temperature Pulse Rate 71 73 Respiratory Rate Blood Pressure 173/94 H 179/95 H Blood Pressure [Left Arm] Pulse Oximetry 100 Oxygen Delivery 09/09/22 13:09 09/09/22 13:16 09/09/22 13:30 Temperature Pulse Rate 82 Respiratory Rate Blood Pressure 126/68 Blood Pressure [Left Arm] Pulse Oximetry 100 94 Oxygen Delivery 09/09/22 13:39 09/09/22 13:44 09/09/22 13:45 Temperature Pulse Rate 86 Respiratory Rate Blood Pressure 127/79 Blood Pressure [Left Arm] Pulse Oximetry 95 95 Oxygen Delivery 09/09/22 13:49 09/09/22 13:54 09/09/22 13:59 Temperature Pulse Rate Respiratory Rate Blood Pressure Blood Pressure [Left Arm] Pulse Oximetry 96 95 96 Oxygen Delivery 09/09/22 14:00 09/09/22 14:04 09/09/22 14:08 Temperature Pulse Rate 79 Respiratory Rate Blood Pressure 130/84 Blood Pressure [Left Arm] Pulse Oximetry 92 100 Oxygen Delivery 09/09/22 14:13 09/09/22 14:15 09/09/22 14:18 Temperature Pulse Rate 74 Respiratory Rate Blood Pressure 146/86 H Blood Pressure [Left Arm] Pulse Oximetry 96 99 Oxygen Delivery 09/09/22 14:28 09/09/22 14:29 09/09/22 14:29 Temperature Pulse Rate Respiratory Rate Blood Pressure Blood Pressure [Left Arm] Pulse Oximetry 82 L 81 L 94 Oxygen Delivery 09/09/22 14:31 09/09/22 14:34 09/09/22 14:39 Temperature Pulse Rate 81 Respiratory Rate Blood Pressure 137/78 Blood Pressure [Left Arm] Pulse Oximetry 96 95 Oxygen Delivery 09/09/22 14:44 09/09/22 14:49 09/09/22 14:54 Temperature Pulse Rate Respiratory Rate Blood Pressure Blood Pressure [Left Arm] Pulse Oximetry 97 97 97 Oxygen Delivery 09/09/22 14:59 09/09/22 15:01 09/09/22 15:04 Tem
[2022-09-10] MEDS: NIFEdipine 30 MG TAB.ER.24 PO (09:12)
--- NOTE | 2022-09-10 12:13 | PC.NURSE ---
Dr. Sutton updated on the pt blood pressure. Pt has complaint of headache Motrin x1 given. Order received for pt to have 2 tabs of Fioricet if headache unrelieved.
[2022-09-10] MEDS: ACETAMINOPHEN 500 MG TABLET 1000 MG PO (16:24)
--- NOTE | 2022-09-10 17:51 | PM.OBPNVD ---
OB - PN: Subj Subjective Date/time seen: 09/10/22 17:51 Narrative: Headache has resolved. BP 140-150/80-90 No abdominal pain. UO excellent. Plan home. She will collect bp measurements 1-2 x daily and phone me on wednesday. Continue Procardia XL 30 mg daily. OB - PN: Obj Data Labs 09/10/22 05:35 09/10/22 05:35 Labs: Laboratory Results - last 24 hr 09/10/22 09/10/22 05:35 05:35 WBC 5.1 RBC 3.49 L Hgb 9.5 L Hct 31.1 L MCV 89.1 MCH 27.2 MCHC 30.5 L RDW 16.2 H Plt Count 301 MPV 9.4 Sodium 134 L Potassium 4.1 Chloride 102 Carbon Dioxide 26 Anion Gap 6 L BUN 11 Creatinine 0.60 L Estim Creat Clear Calc 117 Estimated GFR > 60 Glucose 94 Uric Acid 5.2 Calcium 6.4 L Total Bilirubin 0.5 AST 61 H ALT 57 H Alkaline Phosphatase 165 H Total Protein 7.0 Albumin 3.7
--- NOTE | 2022-09-16 14:45 | P.DS_ITS ---
DS: Admitting Diagnosis Discharge Date 09/10/22 Admitting Diagnosis preeclampsia DS: Discharge Diagnosis Discharge Diagnosis (1) Preeclampsia in period: Code(s): O14.95 - Unspecified pre-eclampsia, complicating the puerperium Status: Acute DS: Summary Hospital Course Hospital Course: Admitted for preeclampsia. Received IV magnesium sulfate, antihypertensives. Her headache resolved, bp improved, and had excellent urine output. Was able to go home late on HD#2. Time Spent with Patient Time attestation: Total time spent providing and/or coordinating discharge services: Discharge Plan Discharge Attending physician on discharge: Karan Sutton Discharging Clinician: Karan Sutton Patient Disposition: Home, Self-Care Activity: pelvic rest Diet: regular Discharge Instructions: Call or return if temperature above 100.4? F, increased abdominal pain, increased vaginal bleeding or any new problems. Stand Alone Forms: General Discharge Information Follow-up/Referrals: Karan Sutton MD [Physician] - 3 Weeks Discharge Medications: New nifedipine [Procardia XL] 30 mg tablet extended release 24hr 30 mg PO DAILY Qty: 30 1RF Continued ferrous sulfate 325 mg (65 mg iron) tablet 325 mg PO DAILY Qty: 30 0RF ibuprofen 600 mg tablet 600 mg PO Q6H PRN (Reason: cramps) Qty: 30 0RF hydrocodone-acetaminophen 5-325 mg tablet 1 - 2 tablet PO Q6H PRN (Reason: pain) Qty: 30 0RF docosahexaenoic acid 200 mg Capsule 480 mg PO DAILY Discontinued labetalol 100 mg tablet 200 mg PO Q12H Date of admission: 09/09/22 12:58 Primary Care Provider: PHYSICIAN,REAL ESTATE DIRECTOR Admitting Provider: Karan Sutton Attending physician on admission: Karan Sutton Condition: Stable
== END 2022-09-10 18:10 | disposition home or self-care (01) ==
LOC: ANHOBOP 09-11 13:33 → ANHOBPP 09-11 13:33
PROVIDERS: Admitting Provider Obstetrics & Gynecology; Visit Provider Obstetrics & Gynecology
DX: O14.95 Unspecified pre-eclampsia, complicating the puerperium (principal); Z79.891 Long term (current) use of opiate analgesic; Z79.1 Long term (current) use of non-steroidal anti-inflammatories (NSAID); Z79.899 Other long term (current) drug therapy
CPT/HCPCS: 36415; 80053; 84550; 85025; 85027; 96365; 96366; 96375; 99199; A9270; G0378; G0379; J0131; J3475; J7120

== ENCOUNTER 2025-03-28 01:37 | Day surgery (SDC) | payer BC, SELFPAY ==
--- NOTE | 2025-03-15 11:13 | SUR.PREOP ---
[facility] has started construction of its new state of the art ER which will open Spring 2026. With this, we anticipate parking may be a challenge for some our surgical patients and families. Parking spaces are limited but are available for all Surgical, obstetrics, and ER patients sharing this lot. If you arrive and find you are having a hard time finding a parking space, please note that we understand the challenges, please drive around the hospital and park near Hospital Entrance 1. When you enter this entrance, you can ask a volunteer to direct or take you back to the surgical waiting area to check in. We appreciate everyone?s understanding of these expected challenges while we build for your future. Report to the Outpatient Waiting Room, entrance under the green pavilion located off [address], at time __10am__ on date _03/28/25___. Planned Procedure Time: __12pm__.? Time changes happen often and if your time is changed the preop area will call you the afternoon before. - You and your visitor will be asked to self-screen and do not enter if you have any COVID symptoms. Please call surgeon if you need to reschedule. - A mask is optional within the hospital at this time. Patients may have clear liquids (water, carbonated beverages, clear teas, apple juice) until 3 hours prior to surgery with a maximum of 20 ounces. - No food from midnight until time of surgery and no smoking, or chewing tobacco (or any form of nicotine). No chewing gum, candy or mints. Take only the following medications with a SIP of water on the morning of surgery: none DO NOT STOP ANY OF YOUR OTHER PRESCRIPTION MEDICATIONS PRIOR TO SURGERY EXCEPT THE FOLLOWING Hold all vitamins and supplements for 3 days per anesthesiologist. Medications to discontinue per physician n/a Date to take last dose___03/24/25 Please no make-up, nail mozambican, hairspray, perfume, deodorant, or body powder the day of surgery.? No jewelry (including any body piercings) or valuables the day of surgery, leave them at home.? Please take a shower or bath the night before, or the morning of, surgery with an antibacterial soap.? Wear comfortable, loose fitting clothing.? - Jewelry must be removed prior to entering the operating room.? Rings and piercings that are not removed may be cut off. - The hospital will not accept responsibility for valuables.? - Please leave all valuables, including medications, at home the day of surgery. If you are going home after surgery, a licensed hazardous materials tanker driver must drive you home.? - NO public transportation without another adult if you receive anesthesia. - We recommend that an adult stay with you for 24 hours following discharge. - We also recommend that you do not drive, make important decision, drink alcoholic beverages, or take any drugs that were not prescribed by your health care provider for at least 24 hours after your discharge time. Follow any additional instructions given to you from your surgeon. Telephone instructions given to __Narayanyue___and asked if any additional questions and then verbalized understanding. Patient advised to call surgeon office or pre surgery nurse liaison [phone] if any additional questions.
[2025-03-15 11:22] VITALS: BMI 27.5
[2025-03-28] VITALS (9 sets, daily range): BP systolic 95–155; BP diastolic 42–90; PULSE 63–105; RESP 12–18; TEMP 36.5; O2SAT 98–100; BMI 28.6
--- OUTSIDE RECORDS SUMMARY | 2025-03-28 01:40 | XMS_ITS | Clinical Summary ---
Author Organization [facility] [employer] Address [address] [place] [place] [address] Care Team Providers Care Sheet Metal Mechanic Name Role Phone Unavailable Primary Care Provider Unavailabl e Source Comments [facility] [employer],non-owned Affiliates and Associated Physician Practices is amultiple site organization consisting of ambulatory clinics and hospital sitesin [place], [place] and [place]. This disclosure is being madepursuant to the Care Everywhere program and may not contain all information available regarding this patient. Last updated 18.[facility] [employer] Allergies Active Allergy Reactions Criticality Noted Date Comments Azithromycin Rash Medium 05/06/2022 Medications * Be aware that medications may not be up to date on this document. Alwaysverify current medications with the patient. 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 Overview (05/04/2022): pt reports 4 sab's UTI (urinary tract infection) due to Enterococcu s 03/03/2022 Overview (05/04/2022): RX's w/ Macrobid @ Dr Sutton's Hx of preeclampsia, prior , currently p regnant 01/30/2008 Overview (05/04/2022): del @ 37 wks Family History Relation Name Status Comments Father Alive Mother Alive Social History Tobacco Use Types Packs/Day Years Used Date Smoking Tobacco: Never Smokeless Tobacco: Never Tobacco Cessation:Counseling Given: Not Answered Alcohol Use Standard Drinks/Week Comments Not Currently 0 (1 standard drink = 0.6 oz pur e alcohol) Education Answer Date Recorded What is the highest level of school you have completed or the highest degree you have received? 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 Not on file Not on file Not on file Last Filed Vital Signs Vital Sign Reading Time Taken Comments Blood Pressure 110/63 05/06/2022 10:06 AM FILLER OPERATOR Pulse 78 05/06/2022 10:06 AM FILLER OPERATOR Temperature 35.9 C (96.7 F) 05/06/2022 10:06 AM FILLER OPERATOR Respiratory Rate 18 05/06/2022 10:06 AM FILLER OPERATOR Oxygen Saturation 99% 05/06/2022 10:06 AM FILLER OPERATOR Inhaled Oxygen Concentration - - Weight 78 kg (172 lb) 05/06/2022 10:06 AM FILLER OPERATOR Height 160 cm (5' 3) 05/06/2022 10:07 AM FILLER OPERATOR Body Mass Index 30.47 05/06/2022 10:06 AM FILLER OPERATOR Plan of Treatment Health Maintenance Due Date Last Done Comments HIV SCREENING 2003 HEPATITIS C SCREENING 03/01/2006 DTAP/TDAP/TD VACCINES (1 - Tdap) 2007 HEPATITIS B VACCINE (1 of 3 - 19+ 3-dose series) 2007 HPV VACCINE (1 - 3-dose SCDM series) 2015 DEPRESSION SCREENING 05/31/2024 COVID-19 VACCINE (1 - 2023-2 5 season) 2025 INFLUENZA VACCINE (#1) 2025 03/08/2017 PAP SMEAR 02/23/2027 Postponed from 2009 (Scheduled) ZOSTER VACCINE (1 of 2) 2038 HIB VACCINE Aged Out No longer eligi ble based on patient's age to complete this topic MENINGOCOCCAL (Group B) VACC INE SHARED DECISION-MAKING Aged Out No longer eligibl e based on patient's age to complete this topic MENINGOCOCCAL GROUPS A/C/Y/W VACCINE Aged Out No longer eligible b ased on patient's age to complete this topic PNEUMOCOCCAL VACCINE Aged Out No long er eligible based on patient's age to complete this topic Insurance [employer] SIGNATURE ADMIN - [facility]
--- NOTE | 2025-03-28 09:07 | PM.IMHP ---
H&P: HPI History of Present Illness Date/Time: 03/28/25 09:07 Chief Complaint: Desired sterility Narrative: 35 y/o who has finished childbearing. She is interested in permanent contraception. She is scheduled for laparoscopic bilateral salpingectomies. Review of Systems Review of Systems: All systems reviewed & are unremarkable except as noted in HPI and below PMFSH Past Medical History Medical History Moderate major depression MTHFR gene mutation Anemia HTN (hypertension) Anxiety History of anemia Compound heterozygous MTHFR mutation [id number] Surgical History Surgical History Hx of wisdom tooth extraction 1999 Hx of tonsillectomy 1998 History of delivery 2007,2016,2022 Family History Family History Father Hypertension Mother Hypertension Grandparent Hypertension Depression Heart disease Cerebrovascular accident Grandparent Alcoholism Cancer Social History Social History Smoking status: Never smoker Alcohol intake: current Alcohol use details: Wine/beer - once a week Substance use: never Do You Feel Safe in your Home?: Yes Lack of Transportation: No Lack of Food: Never True Current Housing: I Have Housing Concerned About Future Housing: No Difficulty Paying Gas/Electric Bills: No Difficulty Paying for Meds: No Currently Unemployed: No Education: High School Diploma/GED Difficulty w/ Childcare or Family Care: No Living arrangements: with family Occupation/Education: occupation Gender identity (if verbalized by the patient): Female Spiritual care concerns: No Meds Home Medications and Allergies Home Medications ?Medication ?Instructions ?Recorded ?Confirmed ?Type levomefolate calcium 1 tablet PO HS mulitvitamin 09/14/23 03/15/25 History multivitamin with folic acid 400 1 tablet PO DAILY 03/13/25 03/15/25 History mcg tablet (One Daily Multivitamin) oestra See Rx Instructions .Route .COMPLEX 03/13/25 03/15/25 History Allergies Allergy/AdvReac Type Severity Reaction Status Date / Time azithromycin Allergy Hives Verified 03/15/25 11:17 Exam Const: Orientation/consciousness: patient oriented x3 Other: Well-developed, well-nourished female in no acute distress. Neck: Thyroid: thyroid normal Lymphatic: no lymphadenopathy noted (in neck, axilla or inguinal nodes) Resp: Effort & Inspection: normal respiratory effort Auscultation: clear to auscultation bilaterally Cardio: Rate: regular rate Rhythm: regular rhythm Heart sounds: S1 normal heart sound present and S2 normal heart sound present GI: Other: ABD: Soft, nontender, nondistended. No guarding or rebound tenderness. No hepatosplenomegaly. : General: Yes no CVA tenderness Other: External genitalia: normal female hair distribution, without lesion. Urethral meatus: no lesion, non prolapsed. Bladder: no mass, nontender Vagina: well-estrogenized, without lesion or discharge. No cystocele or rectocele. Cervix: no lesion or discharge. Uterus: small, anteverted, freely mobile, nontender Adnexa: no mass or tenderness. Anus/perineum: no lesions, nontender Back/Spine/Pelvis: Back: no CVA tenderness Skin: General skin exam: normal color and no rashes or lesions noted Neuro: General: patient oriented x3 Extrem: Other: Extremities: nontender with no edema Psych: Mental Status: mental status grossly normal Affect: normal affect Assessment and Plan Assessment and plan (1) Unwanted fertility: Code(s): Z30.09 - Encounter for other general counseling and advice on contraception Status: Acute Assessment and Plan: A: Desired sterility. P: She understands there are temporary methods of contraception available to her. She understands that there are nonsurgical options as well as surgical options. She understands that bilateral salpingectomy will render her permanently sterile. She understands that there is a failure rate associated with tubal sterilization, as well as an inherent ectopic gestation risk. Furthermore, she understands risks of surgery to include risks of anesthesia, risks of pain, infection, bleeding, blood products, thromboembolic phenomena and damage to adjacent structures such as bowel, bladder, ureters, blood vessels and nerves. She understands all these risks and elects to proceed with laparoscopic bilateral salpingectomy.
[2025-03-28] MEDS: LACTATED RINGERS 1,000 ML 30 ML IV CONT ×2 (10:59→12:57)
[2025-03-28] MEDS: ACETAMINOPHEN 500 MG TABLET 1000 MG PO (11:00)
[2025-03-28] MEDS: KETOROLAC 15 MG/ML VIAL (*BKC) IV PUSH (11:00)
[2025-03-28 11:01] LABS: BEDSIDEPREGUCG Negative (Negative)
--- NOTE | 2025-03-28 11:31 | WPDANESEPPF ---
Anes - Initial Pre Proc Eval Procedure: Operation Date: 03/28/25 12:00 Proposed Procedures p Laparoscopic Bilateral Salpingectomy - Karan Sutton MD Date/Time: 03/28/25 11:31 Surgeon: Karan Sutton MD Pre Op Diagnosis: desires sterilization Patient Data Age: 35 Gender: F Height: 1.6 m Weight: 73.3 kg Last Vital Signs Temp 36.5 C 03/28/25 10:57 Pulse 78 03/28/25 10:57 BP 119/90 03/28/25 10:57 Pulse Ox 100 03/28/25 10:57 O2 Del Method Room Air 03/28/25 10:57 Allergies Allergy/AdvReac Type Severity Reaction Status Date / Time azithromycin Allergy Hives Verified 03/28/25 10:56 Home Medications ?Medication ?Instructions ?Recorded ?Confirmed ?Type levomefolate calcium 1 tablet PO HS mulitvitamin 09/14/23 03/15/25 History multivitamin with folic acid 400 1 tablet PO DAILY 03/13/25 03/15/25 History mcg tablet (One Daily Multivitamin) oestra See Rx Instructions .Route .COMPLEX 03/13/25 03/15/25 History Laboratory Tests 03/28/25 10:57 POC Urine HCG, Qual Negative (Negative) Patient hx anesthesia problems: none Family hx anesthesia problems: none Results Review: All pre-operative results and documents have been reviewed as part of the pre-operative evaluation. REPLACED BY [facility] Past Medical History Medical History Moderate major depression MTHFR gene mutation Anemia HTN (hypertension) Anxiety History of anemia Compound heterozygous MTHFR mutation [id number] Surgical History Surgical History Hx of wisdom tooth extraction 1999 Hx of tonsillectomy 1998 History of delivery 2007,2016,2022 Family History Family History Father Hypertension Mother Hypertension Grandparent Hypertension Depression Heart disease Cerebrovascular accident Grandparent Alcoholism Cancer Social History Social History Smoking status: Never smoker Alcohol intake: current Alcohol use details: Wine/beer - once a week Substance use: never Do You Feel Safe in your Home?: Yes Lack of Transportation: No Lack of Food: Never True Current Housing: I Have Housing Concerned About Future Housing: No Difficulty Paying Gas/Electric Bills: No Difficulty Paying for Meds: No Currently Unemployed: No Education: High School Diploma/GED Difficulty w/ Childcare or Family Care: No Living arrangements: with family Occupation/Education: occupation Gender identity (if verbalized by the patient): Female Spiritual care concerns: No Anes - Eval Final PreProcedure Day of Procedure 03/28/25 11:31 Patient weight: overweight Heart: regular rate and rhythm Lungs: clear to auscultation Airway: Mallampati scale class II Neurological: alert and oriented Last oral intake: >/= 8 hours ASA classification: II Emergent: no Anesthetic plan: proceed Anesthesia type and monitoring: general ETT and standard monitoring Results Review: All pre-operative results and documents have been reviewed as part of the pre-operative evaluation. Informed Consent: The patient's anesthetic plan and its attendant risks and benefits were discussed with the patient/family/POA. Questions were solicited and answers provided to the satisfaction of the patient/family/POA.
[2025-03-28] MEDS: SCOPOLAMINE 1 MG PATCH 1 PATCH TRANSDERM (11:44)
[2025-03-28 11:48] LABS: BEDSIDEPREGUCG Negative (Negative)
--- NOTE | 2025-03-28 11:57 | WPDHPUPDATE1 ---
History and Physical Update Update Date/Time: 03/28/25 11:57 History and Physical has been reviewed, including an updated exam of the patient. There are NO changes in the patient's condition. Risks, benefits, and alternatives have been discussed and questions answered. Patient agrees to proceed with procedure.
--- NOTE | 2025-03-28 12:47 | S_PTH ---
PATIENT: Mame Moulton LOC: [facility] U#:[id number] AGE/SX: 35/F ROOM: RE03/28/[address]: Karan Sutton MD : 1990 BED: DIS: 03/28/2025 SPEC #: [id number] RECD: 03/28/25 13:29 STATUS: [place] RESarina #: [id number] ARIANNA: 03/28/25 12:[address]: Karan Sutton DEPT: [facility] Surgical RECD BY: Monet Hernandez ENTERED: 03/28/25 13:30 SP TYPE: Surgical OTHR DR: Taryn Perdue APRN Tissues: A - Fallopian Tube Bilateral Procedures: Gross and Microscopic Level 2 Hematoxylin and Eosin Stain
--- NOTE | 2025-03-28 12:56 | W.PM.PROC2 ---
Procedure Note - Detailed Date of Procedure 03/28/25 Pre-op Diagnosis Desired sterility Post-op Diagnosis Same Procedure Performed Laparoscopic bilateral salpingectomy Surgeon Karan Sutton MD Anesthesia General Findings Adhesions of the omentum to the anterior abdominal wall. Dense adhesions between the anterior serosa of the uterus and the anterior pelvic wall, obliterating the anterior cul de sac. Left fallopian tube adherent to pelvic sidewall. Left ovary, right tube and ovary unremarkable. Small likely endometriosis implants, one adjacent to the left adnexa and one in the posterior cul de sac. Otherwise, unremarkable posterior cul de sac, bilateral uterosacral ligaments, bilateral round ligaments, and uterus. RUQ anatomy and vermiform appendix unremarkable. Apparent diastasis rectus as well. Description of Procedure The patient was taken to the operating room where general endotracheal anesthesia was administered. She was prepared and draped in the usual sterile fashion in dorsal lithotomy position. The bladder was drained with a red rubber catheter. A sterile speculum was placed into the vagina. The anterior lip of the cervix was grasped with a single-tooth tenaculum. The acorn uterine manipulator was placed. The speculum was withdrawn. Gloves were changed and attention was turned the abdomen. An infraumbilical skin incision was made with a scalpel. The abdomen was tented and a 5mm bladeless trocar was advanced under direct laparoscopic visualization. Pneumoperitoneum was administered using carbon dioxide gas. A survey of the pelvis and abdomen revealed the findings noted above. Additional 5 mm incisions were made in the right and left lower quadrants, and 5 mm ports were advanced using bladeless trocars under direct laparoscopic visualization. The Fallopian tube on the right side was grasped and elevated and dissected off the ovary using the Ligasure. The tube was then amputated from the uterus and passed off to be sent to pathology. The left tube was dissected free from adhesions, then similarly excised. Needlepoint electrocautery was used to cauterize apparent endometriosis implants as noted above. Hemostasis was excellent. The ports were withdrawn. The gas was allowed to escape. The skin incisions were reapproximated using interrupted subcuticular sutures of 4 0 Vicryl. Dermaflex was applied externally. The vaginal instrumentation was withdrawn and hemostasis was excellent here as well. Sponge, lap, needle and instrument counts were correct. The patient was awakened and taken to recovery room in stable condition. I was present and scrubbed through the entire procedure. Implants None Estimated Blood Loss 5 Drains No Packing No Pathology Yes (Bilateral fallopian tubes) Complications None Condition Stable Disposition PACU [facility] Billing Surgery - Charge Forward: Surgery Billing
[2025-03-28] MEDS: fentaNYL CITRATE INJ (*CRX) 100 MCG/2 ML VIAL 25 MCG IV PUSH ×2 (13:31→13:37)
[2025-03-28] MEDS: oxyCODONE HCL (*CRX) 5 MG TAB IR PO (14:05)
== END 2025-03-28 14:54 | disposition home or self-care (01) ==
PROVIDERS: PCP Nurse Practitioner Family; Visit Provider Obstetrics & Gynecology
PROC: (CPT 49320; principal; 2025-03-28 12:00)
DX: Z30.2 Encounter for sterilization (principal); N80.329 Endometriosis of the posterior cul-de-sac, unspecified depth; N80.3C2 Endometriosis of the left uterosacral ligament, unspecified depth; N73.6 Female pelvic peritoneal adhesions (postinfective); G89.18 Other acute postprocedural pain; D64.9 Anemia, unspecified; I10 Essential (primary) hypertension; F41.9 Anxiety disorder, unspecified; F32.1 Major depressive disorder, single episode, moderate; E72.12 Methylenetetrahydrofolate reductase deficiency; Z98.890 Other specified postprocedural states; Z80.9 Family history of malignant neoplasm, unspecified; Z82.49 Family history of ischemic heart disease and other diseases of the circulatory system
CPT/HCPCS: 58661; 88302; A9270; J1100; J1885; J2250; J2405; J2704; J3010; J7120